=== PATIENT | male | born 2000 | race Caucasian/White ===

== ENCOUNTER 2023-04-17 16:08 | Outpatient (CLI) | payer OTHER ==
--- NOTE | 2023-04-17 16:50 | Ultrasound Report ---
PROCEDURE: Head or Neck Soft Tissue INDICATIONS: SOFT TISSUE MASS RIGHT MANDIBLE TECHNIQUE: Real-time scanning was performed of the right mandible in the area of interest. COMPARISON: None FINDINGS: Within the area of interest in the region of the right mandible, there is a 0.7 x 0.6 x 0.8 cm lymph node with a normal fatty hilum. IMPRESSION: Normal-appearing nonenlarged lymph nodes within the area of interest by the right mandib le. Reviewed by: Devan Fernandez MD on 04/17/2023 4:49 PM PDT Approved by: Devan Fernandez MD on 04/17/2023 4:49 PM PDT Station ID: [id number]
== END 2023-04-17 16:09 | disposition home or self-care (01) ==
LOC: DI 16:08
PROVIDERS: ATTEND Family Medicine
DX: R22.9 Localized swelling, mass and lump, unspecified (principal)